=== PATIENT | female | born 2000 | race Two or more races ===

== ENCOUNTER 2019-09-23 09:27 | Inpatient (IN) ==
[2019-09-23] MEDS ORDERED: LIDOCAINE HCL 50 ML VIAL PERI PRN (09:50)
[2019-09-23] MEDS ORDERED: PENICILLIN G POTASSIUM 5 MILLIONUNT in DEXTROSE 5 % IN WATER 100 ML IV ONE ×2 (09:50)
[2019-09-23] MEDS ORDERED: RINGER'S SOLUTION,LACTATED 1,000 ML IV PRN (09:50)
[2019-09-23] MEDS ORDERED: OXYTOCIN/DEXTROSE 5%-WATER 30 UNITS/500 ML BAG IV ONE ×2 (09:50→19:17)
[2019-09-23] MEDS ORDERED: RINGER'S SOLUTION,LACTATED 1,000 ML IV ONE (09:50)
[2019-09-23] MEDS ORDERED: BUTORPHANOL TARTRATE 2 MG/ML VIAL IV PRN ×2 (09:50)
[2019-09-23] MEDS ORDERED: ONDANSETRON 4 MG TAB.RAPDIS PO PRN (09:50)
[2019-09-23 10:30] LABS: Cocaine Ur Negative (NEGATIVE); Urine Barbiturate Negative (NEGATIVE); Urine Benzodiazepines Negative (NEGATIVE); Urine Opiates Negative (NEGATIVE); Urine PCP Negative (NEGATIVE); Urine THC Negative (NEGATIVE)
[2019-09-23] MEDS ORDERED: BUPIVACAINE HCL/0.9 % NACL/PF 250 ML EP PRN (11:04)
[2019-09-23] MEDS ORDERED: NALOXONE HCL 1 MG/1 ML SYRG IV PRN (11:04)
[2019-09-23] MEDS ORDERED: ONDANSETRON HCL/PF 2 MG/ML VIAL IV PRN ×2 (11:04→23:38)
[2019-09-23] MEDS ORDERED: fentaNYL CITRATE/PF 50 MCG/ML AMPUL IT SCH (11:15)
--- NOTE | 2019-09-23 12:59 | ANES ---
Post Anesthesia Assessment - Vital Signs Vitals: Last Vital Signs Temp 36.6 C 09/23/19 10:04 Pulse 114 H 09/23/19 10:04 Resp 18 09/23/19 10:04 BP 125/84 09/23/19 10:04 Pulse Ox 99 09/23/19 10:04 Airway Patency: Normal - Mental Status Level Of Consciousness: Awake - Pain Level Pain Score: 2 - N/V Assessment Nausea/Vomiting Presence: None Dehydration:: No
--- NOTE | 2019-09-23 12:59 | ANES ---
Post Anesthesia Discharge - Transfer of Care Transfer of Care handoff given to nurse: Yes - Anesthesia Post Op Note Anesthesia Post Op Note: care transferred to OB RN
--- NOTE | 2019-09-23 12:59 | ANES ---
Anesthesia Pre Procedure Eval Vitals/Labs: Last Vital Signs Temp 36.6 C 09/23/19 10:04 Pulse 114 H 09/23/19 10:04 Resp 18 09/23/19 10:04 BP 125/84 09/23/19 10:04 Pulse Ox 99 09/23/19 10:04 HOME MEDICATIONS Mv-Mn/C/Glutamin/Lysin/[id number] [Airborne Gummies] 1 ea PO DAILY 09/20/19 [Last Taken Unknown] Vits96/Iron Fum/Folic [ S] 1 tab PO DAILY 09/20/19 [Last Taken Unknown] Allergies/Adverse Reactions: Allergies Allergy/AdvReac Type Severity Reaction Status Date / Time kiwi Allergy itching, Verified 09/23/19 09:51 tongue swells No Known Drug Allergies Allergy Verified 09/23/19 09:51 - Planned Procedure Planned Procedure: Labor Medication List Reviewed:: Yes Allergies Verified: Yes Medical History (Last Reviewed 09/23/19 @ 12:58 by Ravi Dunlap CRNA) Anemia History of shingles Onset Date: ~2009 Asthma as a child Surgical History (Last Reviewed 09/23/19 @ 12:58 by Ravi Dunlap CRNA) History of dilation and curettage Onset Date: ~2017 incomplete Family History (Last Updated 05/27/19 @ 13:33 by Mariajose Ronquillo LPN) Mother Degenerative disc disease Father Unknown family medical history - Family Anesthesia History Family History:: no untoward family reactions to anesthesia - Airway/Neck/Teeth Within Normal Limits:: Yes Teeth Condition: intact Neck Exam: full range of motion Mallampatti Score: 2 Thyromental (T-M) distance: > 6 cm Mandibulo Hyoid distance: > 3 cm - Respiratory Respiratory Physical: lungs clear Sleep Apnea currently treated: No Sleep Apnea by current assessment: No - Cardiovascular Tolerate Activity: Good Heart Sounds: S1 & S2, Regular - Gastrointestinal NPO since: 0600 - Anesthesia Assessment and Plan ASA Class: PS, II, E Anesthesia Type Plan: Epidural Planned difficult intubation/equipment available: No
--- NOTE | 2019-09-23 13:03 | ANES ---
Anesthesia Procedure Note Procedure Note: ANESTHESIA PROCEDURE NOTE Date of Procedure: 09/23/2019 Time of procedure: 1250. Performed by: Elias Dunlap CRNA Field Software Engineer: None. Preprocedure diagnosis: Active labor. Post procedure diagnosis: Same. Procedure: Insertion of labor epidural. Indications: The patient is a 19-year-old multigravid female in active labor requesting labor epidural for pain management. Findings: See below. Details of the procedure: The patient was placed in a sitting position. Back was prepped with DuraPrep. Patient was then draped in a sterile fashion. Lidocaine 1% was infiltrated to the skin and subcutaneous tissues at the level of the L3 4 interspace. The epidural space was identified using a 18-gauge Tuohy needle with [id number] technique. 20 mcg fentanyl was given intrathecally using a 27 ga. spinal needle. Epidural catheter was inserted without difficulty. Negative test dose was elicited using 5 mL of 1.5% preservative-free lidocaine plus epinephrine 1 200,000. The epidural catheter was then taped and secured in place. EBL: Minimal. Fluids: N/A. Specimen: N/A. Post procedure condition: The patient tolerated the procedure well. No complications were noted. Thank you for this consultation. Kruger CRNA
--- NOTE | 2019-09-23 13:27 | HP ---
Chief Complaint - Chief Complaint Date of Service: 09/23/19 Time of Service: 13:23 Chief Complaint: vaginal bleeding History of Present Illness: 19 year old at 38w 3d who presented to the office today for a routine obstetrical visit. She noticed a large amount of blood when she wiped consistent with bloody show. Also her urine had gross blood in the office. She reported cramping. She denied loss of fluid. Fetus is active. Medical History (Last Reviewed 09/23/19 @ 13:24 by Yumiko Wooten MD) Anemia History of shingles Onset Date: ~2009 Asthma as a child Surgical History: Surgical History (Last Reviewed 09/23/19 @ 13:24 by Yumiko Wooten MD) History of dilation and curettage Onset Date: ~2017 incomplete Family History: Family History (Last Reviewed 09/23/19 @ 13:24 by Yumiko Wooten MD) Mother Degenerative disc disease Father Unknown family medical history Social History: (Last Reviewed 09/23/19 @ 13:24 by Yumiko Wooten MD) Social History: adopted: No Marital status: household members: spouse, children current occupational status: employed 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 current occupational exposures/hazards: No Highest education level completed: some college, no degree Service: No Tobacco: Smoking Status: Never smoker Alcohol: alcohol intake: never Substance Use: substance use type: does not use Dietary Habits: caffeine: Yes caffeine comment: occasional Type: coffee Pets: pets and animals: cat(s), dog(s) Review Of Systems (GEN) - Review of Systems Generalized/Overall Review: Present: No Symptoms Reported Genitourinary: Present: Other - vaginal bleeding Misc: All systems neg except as marked Allergies/Adverse Reactions: Allergies Allergy/AdvReac Type Severity Reaction Status Date / Time kiwi Allergy itching, Verified 09/23/19 09:51 tongue swells No Known Drug Allergies Allergy Verified 09/23/19 09:51 Home Medications: HOME MEDICATIONS Mv-Mn/C/Glutamin/Lysin/[id number] [Airborne Gummies] 1 ea PO DAILY 09/20/19 [Last Taken Unknown] Vits96/Iron Fum/Folic [ S] 1 tab PO DAILY 09/20/19 [Last Taken Unknown] Exam - Exam Vital Signs: Vital Signs - Last Taken Temp 36.6 C 09/23/19 10:04 Pulse 114 H 09/23/19 10:04 Resp 18 09/23/19 10:04 BP 125/84 09/23/19 10:04 Pulse Ox 99 09/23/19 10:04 Constitutional: Present: Alert, Oriented x3, Cooperative, Well developed, Well nourished, No distress ENT Exam: Present: hearing grossly normal Neck: Present: normal inspection Back Exam: Present: normal inspection Breasts: Present: Exam deferred Respiratory: Present: lungs clear, normal breath sounds, no respiratory distress Cardiovascular/Chest: Present: regular rate, rhythm Abdomen: Present: soft, nontender, nondistended /Rectal: Present: Other - 5-6/90/-1 AROM for clear fluid Extremity: Present: non-tender, no calf tenderness Skin Exam: Present: normal color, warm/dry, no cyanosis Appearance: Present: appropriate appearance, appropriate insight Eye contact: Present: cooperative, good eye contact, normal speech Thoughts: Present: normal thought pattern Diagnostic Studies: Laboratory Results Urine Opiates Screen Negative (NEGATIVE) 09/23/19 10:00 Barbiturate Screen Negative (NEGATIVE) 09/23/19 10:00 Ur Phencyclidine Scrn Negative (NEGATIVE) 09/23/19 10:00 Urine Amphetamine Negative (NEGATIVE) 09/23/19 10:00 U Benzodiazepines Scrn Negative (NEGATIVE) 09/23/19 10:00 Urine Cocaine Screen Negative (NEGATIVE) 09/23/19 10:00 Urine Marijuana (THC) Negative (NEGATIVE) 09/23/19 10:00 Blood Type O Positive 09/23/19 10:01 Antibody Screen Negative 09/23/19 10:01 Assessment/Plan - Narrative Narrative: 19 year old at 38w 3d 1. Labor. AROM for augmentation 2. GBS negative: prophylaxis not indicated FHT cat 1
[2019-09-23] MEDS: PENICILLIN G POTASSIUM 2.5 MILLIONUNT in DEXTROSE 5 % IN WATER 100 ML IV SCH ×4 (14:16→17:40)
[2019-09-23] MEDS ORDERED: ACETAMINOPHEN 500 MG TABLET PO ONE (15:25)
[2019-09-23] MEDS ORDERED: BISACODYL 10 MG SUPP.RECT RC PRN (19:17)
[2019-09-23] MEDS ORDERED: BENZOCAINE/MENTHOL 81 SPRAY CAN TP PRN (19:17)
[2019-09-23] MEDS ORDERED: HYDROCORTISONE 30 APPL TUBE TP PRN (19:17)
[2019-09-23] MEDS ORDERED: diphenhydrAMINE HCL 25 MG CAPSULE PO PRN (19:17)
[2019-09-23] MEDS ORDERED: SENNOSIDES 8.6 MG TABLET PO PRN (19:17)
[2019-09-23] MEDS ORDERED: GLYCERIN/WITCH HAZEL LEAF 40 APPL BOX TP PRN (19:17)
[2019-09-23] MEDS ORDERED: HYDROcodone/ACETAMINOPHEN 1 EACH TABLET PO PRN (19:17)
--- NOTE | 2019-09-23 19:17 | OR ---
Operative Report - Dictated Report Narrative: Date of delivery: 09/23/2019 Time of delivery: 1900 Gender: male weight: 3539 grams APGARS: 8/9 Procedure: Description of the procedure: The patient is a 19 year old at 38w 3d who presented in labor. She was augmented with AROM. Pitocin was started but had to be turned off due to tachysystole. She progressed to complete dilation. She delivered a viable male infant in CRISTINE presentation over an intact perineum. The shoulders delivered without any difficulty followed by the rest of the infant. Cord clamping was delayed for 60 seconds. The cord was clamped and cut with the infant on the maternal abdomen. The placenta was delivered by expression and appeared intact. A small vaginal laceration was present at the midline and it was hemostatic so it was not repaired. EBL: 100 mL Complications: none Specimens: none History for MU Definition: * The number of deliveries resulting in a live the patient experienced prior to current hospitalization * The previous delivery of live twins or any live multiple gestation is considered one live event. *If primagravida or nulliparous is documented select zero for the number of previous live births. Live Events: 1
[2019-09-23] MEDS: IBUPROFEN 800 MG TABLET PO PRN (19:34)
[2019-09-23] MEDS: HYDROcodone/ACETAMINOPHEN 1 EACH TABLET PO PRN (19:34)
[2019-09-23] MEDS: DOCUSATE SODIUM 100 MG CAPSULE PO SCH (23:40)
[2019-09-24] MEDS: IBUPROFEN 800 MG TABLET PO PRN ×3 (03:35→23:31)
[2019-09-24] MEDS: HYDROcodone/ACETAMINOPHEN 1 EACH TABLET PO PRN ×4 (03:35→23:32)
[2019-09-24] MEDS: DOCUSATE SODIUM 100 MG CAPSULE PO SCH ×2 (07:01→08:31)
--- NOTE | 2019-09-24 09:02 | PN ---
Subjective - Date and Time Seen Date: 09/24/19 Time: 09:01 Subjective Narrative: Patient without complaints Objective Objective Narrative: See vital signs - Review of Systems Generalized/Overall Review: Reports: No Symptoms Reported Misc: All systems neg except as marked - Vitals Vitals: Last Vital Signs Temp 35.9 C L 09/24/19 07:45 Pulse 90 09/24/19 07:45 Resp 16 09/24/19 07:45 BP 122/66 09/24/19 07:45 Pulse Ox 99 09/24/19 07:45 - Exam Constitutional: Present: Alert, Oriented x3, Cooperative, No distress ENT Exam: Present: hearing grossly normal Extremity: Present: non-tender, no calf tenderness Skin Exam: Present: normal color, warm/dry, no cyanosis Appearance: Present: appropriate appearance, appropriate insight Eye contact: Present: cooperative, good eye contact, normal speech Thoughts: Present: normal thought pattern Cauti Physician Documentation - Urinary Catheter Management Urethral (Barreto) Urethral Indwelling: No Date of Insertion: 09/23/19 Time of Insertion: 13:30 Date of Removal: 09/23/19 Time of Removal: 18:35 Assessment/Plan Plan Narrative: PPD 1 s/p Doing well Discharge tomorrow
[2019-09-24] MEDS: PRENATAL VITS96/IRON FUM/FOLIC 1 TAB TABLET PO SCH (11:24)
[2019-09-25] MEDS: DOCUSATE SODIUM 100 MG CAPSULE PO SCH ×3 (00:55→14:28)
[2019-09-25] MEDS: HYDROcodone/ACETAMINOPHEN 1 EACH TABLET PO PRN ×2 (07:32→14:27)
[2019-09-25] MEDS: PRENATAL VITS96/IRON FUM/FOLIC 1 TAB TABLET PO SCH ×2 (07:33→14:28)
[2019-09-25] MEDS: IBUPROFEN 800 MG TABLET PO PRN ×2 (07:33→14:27)
[2019-09-25 08:18] VITALS: BP 120/78
--- NOTE | 2019-09-25 09:05 | PN ---
Subjective - Date and Time Seen Date: 09/25/19 Time: 09:03 Subjective Narrative: Patient without complaints Objective Objective Narrative: See vital signs - Review of Systems Generalized/Overall Review: Reports: No Symptoms Reported Misc: All systems neg except as marked - Vitals Vitals: Last Vital Signs Temp 36.8 C 09/25/19 07:25 Pulse 72 09/25/19 07:25 Resp 18 09/25/19 07:25 BP 120/78 09/25/19 07:25 Pulse Ox 96 09/25/19 07:25 - Exam Constitutional: Present: Alert, Oriented x3, Cooperative, No distress ENT Exam: Present: hearing grossly normal Abdomen: Present: soft, nontender, nondistended Extremity: Present: non-tender, no calf tenderness Skin Exam: Present: normal color, warm/dry, no cyanosis Appearance: Present: appropriate appearance, appropriate insight Eye contact: Present: cooperative, good eye contact, normal speech Thoughts: Present: normal thought pattern Cauti Physician Documentation - Urinary Catheter Management Urethral (Barreto) Urethral Indwelling: No Date of Insertion: 09/23/19 Time of Insertion: 13:30 Date of Removal: 09/23/19 Time of Removal: 18:35 Assessment/Plan Plan Narrative: PPD 2 s/p Doing well Discharge today Detailed discharge instructions given Follow-up in 4 weeks or sooner for any other concerns
== END 2019-09-25 16:02 | disposition home or self-care (01) | DRG 807 ==
LOC: OB 09:27 → MS 09-24 17:16
PROVIDERS: ADMIT Obstetrics & Gynecology; ATTEND Obstetrics & Gynecology
CPT/HCPCS: 59025; 80307; 86850; J2405